=== PATIENT | female | born 1985 | race African-American/Black ===

== ENCOUNTER 2018-05-13 16:21 | Emergency (ER) | payer MEDICAID ==
[~2018-05-13] VITALS: Ht 172.7 cm; Wt 86.2 kg
[2018-05-13] MEDS ORDERED: IPRATROPIUM BROMIDE (0.02%) 0.5MG/2.5ML NEB HHN STA (18:12)
[2018-05-13] MEDS ORDERED: ALBUTEROL (0.083%) 2.5MG/3ML NEB HHN STA (18:12)
[2018-05-13] MEDS ORDERED: IPRATROPIUM BROMIDE (0.02%) 0.5MG/2.5ML NEB ONE (18:20)
[2018-05-13] MEDS ORDERED: ALBUTEROL (0.5%) 2.5MG/0.5ML NEB HHN ONE (18:20)
[2018-05-13] MEDS ORDERED: PREDNISONE 20MG TABLET PO ONE (21:30)
[2018-05-13] MEDS ORDERED: FAMOTIDINE 20MG TABLET PO ONE (21:45)
[2018-05-13] MEDS ORDERED: MAGNESIUM/ALUMINUM HYDROXIDE/SIMETHICONE 30ML UDC PO ONE (21:45)
[2018-05-13 23:14] VITALS: BP 124/65
== END 2018-05-13 23:21 | disposition home or self-care (01) ==
LOC: ER 16:21
DX: J45.901 Unspecified asthma with (acute) exacerbation (principal); F41.9 Anxiety disorder, unspecified; I10 Essential (primary) hypertension; Z88.0 Allergy status to penicillin
CPT/HCPCS: 71045; 81025; 94640; 99284; J7512; J7611; Z7610